=== PATIENT | male | born 1965 | race American Indian/Alaskan Native ===

== ENCOUNTER 2016-10-27 16:17 | Emergency (ER) | payer BC ==
[2016-10-27] MEDS ORDERED: CATAPRES ONE (16:31)
[2016-10-27] MEDS ORDERED: CATAPRES PO ONE (16:38)
[2016-10-27 17:08] LABS: Basophils % (Auto) 0.5 % (0.0-1.8); Eosinophils % (Auto) 1.8 % (0.0-4.3); Hematocrit 42.3 % (35.5-45.6); Hemoglobin 13.4 gm/dl (11.8-15.2); Mean Corpuscular HGB Conc 32 % (32-34); Mean Corpuscular Volume 80 fl (84-94); Platelet Count 203 K/mm3 (140-440); Red Blood Count 5.27 M/mm3 (3.65-5.03); Red Cell Distribution Width 15.7 % (13.2-15.2); White Blood Count 8.4 K/mm3 (4.5-11.0)
[2016-10-27 17:34] LABS: Mean Corpuscular Hemoglobin 25 pg (28-32)
[2016-10-27 17:36] LABS: BUN/Creatinine Ratio 18.46; Calcium 8.5 mg/dL (8.4-10.2); Chloride 98.9 mmol/L (98-107); Potassium 3.7 mmol/L (3.6-5.0)
[2016-10-27] MEDS ORDERED: ZOFRAN IM ONE (20:29)
[2016-10-27] MEDS ORDERED: MORPHINE IM ONE (20:29)
[2016-10-27] MEDS ORDERED: TORADOL IM ONE (20:30)
--- NOTE | 2016-10-27 20:35 | Emergency Department Report ---
HPI - General Chief Complaint: Extremity Injury, Lower Time Seen by Provider: 10/27/16 20:16 - HPI HPI: Room 19 The patient is a 51-year-old male presenting with chief complaint of right lower extremity pain. Patient states his symptoms began 5 days ago or burning pain and numbness in the right lower extremity. The patient states he went to [facility] emergency department where he had an x-ray of his hip performed that he reports was negative. The patient was given a prescription for steroids and discharged home. Patient states the following morning at 08: 30 he attempted to get out of bed so he go get his prescriptions filled the pain was so severe he could not move. EMS was called and transported the patient back to the [facility] emergency department. The patient states he was given pain medication well as an MRI which she believes was of the spine. The patient initially stated his MRI was normal later in and he states the physician in the ED showed him the spine and where "something was pushing on it. " The patient states she was not given a referral to specialist but he has an appointment to see his primary physician in one week. The patient states he continues to have the pain in his right lower extremity whenever he attempts to stand up or bear weight. The patient currently denies pain while at rest in the bed. Location: Right Lower extremity Duration: 5 days Quality: Burning Severity: Currently 0/10 Modifying factors: [see above] Context: [see above] Mode of transportation: [not driving] ED Past Medical Hx - Past Medical History Previous Medical History?: Yes Hx Hypertension: Yes - Surgical History Past Surgical History?: No - Family History Family history: no significant - Social History Smoking Status: Former Smoker Substance Use Type: Prescribed - Medications Home Medications: Home Medications Medication Instructions Recorded Confirmed Last Taken Type Gabapentin [Neurontin] 600 mg PO QPM #20 tab 10/27/16 Unknown Rx Hydrochlorothiazide [HCTZ] 1 tab PO DAILY 10/27/16 10/27/16 10/26/16 History Methocarbamol [Robaxin TAB] 750 mg PO Q8H PRN 10/27/16 10/27/16 10/27/16 History Percocet 7.5/325 mg 1 tab PO DAILY 10/27/16 10/27/16 10/27/16 History amLODIPine [Norvasc] 10 mg PO DAILY 10/27/16 10/27/16 10/26/16 History methylPREDNISolone [Medrol] 4 mg PO DAILY 10/27/16 10/27/16 10/27/16 History ED Review of Systems ROS: Stated complaint: RT LEG PAIN Other details as noted in HPI Comment: All other systems reviewed and negative Constitutional: denies: chills, fever Eyes: denies: eye pain, eye discharge, vision change ENT: denies: ear pain, throat pain Respiratory: denies: cough, shortness of breath, wheezing Cardiovascular: denies: chest pain, palpitations Endocrine: no symptoms reported Gastrointestinal: denies: abdominal pain, nausea, diarrhea Genitourinary: denies: urgency, dysuria Musculoskeletal: myalgia. denies: back pain Skin: denies: rash, lesions Neurological: paresthesias Psychiatric: denies: anxiety, depression Hematological/Lymphatic: denies: easy bleeding, easy bruising Physical Exam - Physical Exam Vital Signs: Vital Signs 10/27/16 10/27/16 10/27/16 16:23 16:41 20:06 Temperature 98.4 F 98.1 F Pulse Rate 87 87 85 Respiratory 18 18 Rate Blood Pressure 198/120 198/120 Blood Pressure 175/95 [Left] O2 Sat by Pulse 100 98 Oximetry 10/27/16 20:22 Temperature Pulse Rate Respiratory 16 Rate Blood Pressure Blood Pressure [Left] O2 Sat by Pulse 100 Oximetry Physical Exam: GENERAL: The patient is well-developed well-nourished male lying on stretcher not appearing to be in acute distress. [] HEENT: Normocephalic. Atraumatic. Extraocular motions are intact. Patient has moist mucous membranes. NECK: Supple. Trachea Midline CHEST/LUNGS: Clear to auscultation. There is no respiratory distress noted. HEART/CARDIOVASCULAR: Regular. There is no tachycardia. There is no gallop rub or murmur. 2+ right DP ABDOMEN: Abdomen is soft, nontender. Patient has normal bowel sounds. There is no abdominal distention. SKIN: There is no rash. There is no edema. There is no diaphoresis. NEURO: The patient is awake, alert, and oriented. The patient is cooperative. The patient has no focal neurologic deficits. The patient has normal speech MUSCULOSKELETAL: There is no tenderness or deformity. There is no limitation range of motion. There is no evidence of acute injury. Negative Straight leg raise on the right ED Course Vital Signs 10/27/16 10/27/16 10/27/16 16:23 16:41 20:06 Temperature 98.4 F 98.1 F Pulse Rate 87 87 85 Respiratory 18 18 Rate Blood Pressure 198/120 198/120 Blood Pressure 175/95 [Left] O2 Sat by Pulse 100 98 Oximetry 10/27/16 20:22 Temperature Pulse Rate Respiratory 16 Rate Blood Pressure Blood Pressure [Left] O2 Sat by Pulse 100 Oximetry ED Medical Decision Making - Lab Data Result diagrams: 10/27/16 16:42 10/27/16 16:42 - Medical Decision Making Records obtained from [facility] emergency department visit reveals the patient had a CT scan of the right hip and lumbar spine. CT scan of the right hip revealed no osseous abnormality. CT scan of the lumbar spine revealed suspected right-sided L4-5 extrusion, which without the patient's symptoms. Moderate degenerative disc disease. Bony neuroforaminal impingement of L5-S1 level on the right and this was discussed with the patient and he was given a copy of the CT report from [facility]. Importance of orthopedic follow- up was stressed and patient verbalized understanding - Differential Diagnosis lumbar radiculopathy, sciatica, neuropathy Critical care attestation.: If time is entered above; I have spent that time in minutes in the direct care of this critically ill patient, excluding procedure time. ED Disposition Clinical Impression: Lumbar radiculopathy, acute Disposition: DISCHARGED TO HOME OR SELFCARE Is pt being admited?: No Does the pt Need Aspirin: No Condition: Stable Instructions: Lumbar Radiculopathy (ED) Additional Instructions: Return to the emergency department immediately should you develop worsening symptoms, fever, inability to tolerate food or liquid or any other concerns. Prescriptions: Gabapentin [Neurontin] 600 mg PO QPM #20 tab Referrals: LEONELA CROWELL [Other] - 3-5 Days ANDRE HUFFMAN MD [Staff Physician] - [facility] (Dr. Huffman is an orthopedic surgeon. Please follow up with him for further evaluation) Time of Disposition: 21:57
[2016-10-27 22:14] VITALS: BP 142/76
== END 2016-10-27 22:25 | disposition home or self-care (01) ==
LOC: ED 16:17
DX: M54.16 Radiculopathy, lumbar region (principal); I10 Essential (primary) hypertension; Z87.891 Personal history of nicotine dependence
CPT/HCPCS: 36415; 80048; 85025; 96372; 99283; J1885; J2270; J2405